=== PATIENT | female | born 1970 | race American Indian/Alaskan Native ===

== ENCOUNTER 2016-09-20 10:15 | Outpatient (CLI) | payer BC ==
--- NOTE | 2016-09-20 15:49 | Mammography Report ---
BILATERAL DIGITAL SCREENING MAMMOGRAM with CAD: 09/20/16 10:15:00 CLINICAL: Routine screening. COMPARISON:06/27/15 FINDINGS: The breasts are heterogeneously dense, which may obscure small masses. No mass, architectural distortion or suspicious calcifications. IMPRESSION: No mammographic evidence of malignancy. BI-RADS CATEGORY: 1 - - Negative RECOMMENDATION: Routine mammographic screening in one year. COMMENT: Patient follow-up letters are generated by our [employer] application.
== END 2016-09-20 10:16 | disposition home or self-care (01) ==
LOC: MAMMO 10:15
PROVIDERS: ATTEND Obstetrics & Gynecology
DX: Z12.31 Encounter for screening mammogram for malignant neoplasm of breast (principal)
CPT/HCPCS: 77067; G0202

== ENCOUNTER 2018-02-24 09:36 | Outpatient (CLI) | payer BC ==
--- NOTE | 2018-02-24 15:00 | Mammography Report ---
BILATERAL DIGITAL SCREENING MAMMOGRAM with CAD: 02/24/18 09:36:00 CLINICAL: Routine screening. COMPARISON:09/20/16 FINDINGS: The breasts are heterogeneously dense, which may obscure small masses.Stable left calcifications. A group of inferior left calcifications are very close to the skin and may be dermal. No mass, architectural distortion or suspicious calcifications. IMPRESSION: No mammographic evidence of malignancy. BI-RADS CATEGORY: 2 - - Benign RECOMMENDATION: Routine mammographic screening in one year. COMMENT: Patient follow-up letters are generated by our [employer] application.
== END 2018-02-24 09:37 | disposition home or self-care (01) ==
LOC: MAMMO 09:36
PROVIDERS: ATTEND Obstetrics & Gynecology
DX: Z12.31 Encounter for screening mammogram for malignant neoplasm of breast (principal)
CPT/HCPCS: 77067

== ENCOUNTER 2019-06-25 11:06 | Outpatient (CLI) | payer BC ==
--- NOTE | 2019-06-25 11:39 | XRay Report ---
LEFT KNEE 2 VIEWS INDICATION / CLINICAL INFORMATION: PAIN IN LEFT KNEE COMPARISON: None available. FINDINGS: BONES and JOINT(S): No acute fracture or subluxation. No significant arthritis. SOFT TISSUES: No significant abnormality. ADDITIONAL FINDINGS: None. IMPRESSION: No significant abnormality of the left knee. Signer Name: Hira Ambrocio MD Signed: 06/25/2019 11:34 AM Workstation Name: [id number]
== END 2019-06-25 11:07 | disposition home or self-care (01) ==
LOC: XRAY 11:06
PROVIDERS: ATTEND Orthopaedic Surgery
DX: M25.562 Pain in left knee (principal)